=== PATIENT | male | born 1975 | race African-American/Black ===

== ENCOUNTER 2021-05-14 04:54 | Emergency (ER) | payer BC ==
[~2021-05-14] VITALS: Ht 188 cm; Wt 99.8 kg
[2021-05-14] MEDS ORDERED: OFLOXACIN5 M1 OT (10:44)
[2021-05-14] MEDS ORDERED: SKELAGESIC PO (10:44)
[2021-05-14] MEDS ORDERED: PERCOCET 5-3251 EACH PO (10:47)
[2021-05-14] MEDS ORDERED: ZITHROMAX500 MG PO (10:47)
== END 2021-05-14 10:51 ==
LOC: ER 04:54
DX: H66.91 Otitis media, unspecified, right ear (principal)